=== PATIENT | male | born 1960 | race Caucasian/White ===

== ENCOUNTER 2024-09-17 16:42 | Emergency (ER) | payer SELFPAY ==
[~2024-09-17] VITALS: Ht 172.7 cm; Wt 89.0 kg
[2024-09-17 16:47] VITALS: BP 216/151; O2SAT 100
[2024-09-17 16:48] VITALS: PULSE 105; RESP 18; O2SAT 99
== END 2024-09-17 22:38 | disposition left against medical advice (07) ==
LOC: ER 16:42
DX: F41.0 Panic disorder [episodic paroxysmal anxiety] (principal); Z53.21 Procedure and treatment not carried out due to patient leaving prior to being seen by health care provider